=== PATIENT | male | born 1985 | race Caucasian/White ===

== ENCOUNTER → 2021-07-13 | Outpatient (CLI) | payer OTHER ==
[~2021-07-13] MED LIST: DULO60CA7 PO; MULT-496 PO; NAPR-514 PO; OXYC-325 PO
== END ==
LOC: LAB 10:27
PROVIDERS: ATTEND Orthopaedic Surgery Sports Medicine
DX: Z01.812 Encounter for preprocedural laboratory examination (principal); Z20.822 Contact with and (suspected) exposure to COVID-19
CPT/HCPCS: U0003

== ENCOUNTER 2021-07-17 07:45 | Day surgery (SDC) | payer OTHER ==
[~2021-07-17] VITALS: Ht 172.7 cm; Wt 95.4 kg
[~2021-07-17 07:45] MED LIST changes: +BUPIVACAINE MPF 0.5% 30 ML VIAL. ONE; +EPINEPHrine VIAL 30 MG/30 ML VIAL ONE; +HYDROmorphone 2 MG/ML INJ. IVP PRN; +IV RINGERS,LACTATED 1000ML 1,000 ML IV SCH; +MORPHINE SULFATE 2 MG/ML INJ. IVP PRN; -OXYC-325 PO; +PROCHLORPERAZINE 10 MG/2 ML VIAL. IVP PRN; +fentaNYL PF VIAL 100 MCG/2 ML VIAL IVP PRN
[2021-07-17 08:05] VITALS: BP 119/66
[2021-07-17] MEDS ORDERED: OXYC-325 PO (08:06)
--- NOTE | 2021-07-17 08:07 | DISCH ---
DISCHARGE INSTRUCTIONS Condition on Discharge Condition on Discharge: Stable Activity After Discharge Activity Instructions for Disc: Other ROM activity, Other, see below Other activity instructions: remain in brace Bathing Instructions: Shower-keep dressing dry Weight Bearing Status after Di: Non weight bearing Diet after Discharge Diet after Discharge: Regular Wound Incision Care Wound/Incision Care: Ice to area for comfort, Keep wound/cast CDI, Change dressing Other wound/incision instructi: change dressing in 2 days Contacting the DRMichelle after DC Call your doctor for: Concerns you may have Follow-Up Follow up with: Vincent in 2wks LY SIDDIQI II, MD Jul 17, 2021 08:07
[2021-07-17] MEDS ORDERED: FAMOTIDINE 20 MG/2 ML VIAL ONE (08:31)
[2021-07-17] MEDS ORDERED: PROPOFOL 10 MG/ML (20ML) VIAL. IV ONE (08:31)
[2021-07-17] MEDS ORDERED: DEXAMETHASONE SOD PHOS 4 MG/ML VIAL ONE (08:31)
[2021-07-17] MEDS ORDERED: fentaNYL PF VIAL 100 MCG/2 ML VIAL ONE (08:31)
[2021-07-17] MEDS ORDERED: ONDANSETRON PF 4 MG/2 ML VIAL. ONE (08:31)
[2021-07-17] MEDS ORDERED: MIDAZOLAM HCL/PF 2 MG/2 ML VIAL. ONE (08:31)
[2021-07-17] MEDS ORDERED: LIDOCAINE 2% PF 5 ML VIAL. ONE (08:32)
--- NOTE | 2021-07-17 09:11 | PDOC4 ---
Operative Note Operative Note Date of procedure: 07/17/2021 Surgeon: Abdifatah Siddiqi Worm Grower: Tavares Bojorquez Preoperative diagnosis: Right knee lateral meniscus tear Postoperative gnosis: Same Procedure performed: Right knee arthroscopy with partial lateral meniscectomy Anesthesia: General Findings: 1. Patient agreed to changes centrally at his patella, remainder of cartilage was unremarkable 2. No loose bodies 3. Intact cruciate ligaments 4. Medial meniscus was stable without tear 5. Lateral meniscus had a small central radial tear and showed some fraying at the anterior horn Tourniquet time: Less than 30 minutes Complications: None Components inserted: None Reason for procedure: Patient is a pleasant 36-year-old gentleman who had a knee injury and has had pain and intermittent swelling. Clinical and radiographic work-up including MRI were consistent with the preoperative diagnosis and after discussion of the risk benefits and alternatives he elected to proceed with surgery. Description of procedure: Patient was greeted in the preoperative area by myself or the correct extremity was verified and marked. He was taken to the operative suite and his antibiotics were started as she was brought back. Once in the op erating room he was transferred on spine to the operating room table and secured to bed with all pressure points padded. We had a padded bump secured laterally at his hip and a padded foot rest to maintain his knee at 90 degrees. He had successful induction of a general anesthetic. Nonsterile tourniquet was applied and taped in place to his right upper thigh. Examination under anesthesia demonstrated his knee was stable to varus and valgus at 0 and 30, negative pivot, negative Edward. We then proceeded to prep and drape right lower extremity our usual sterile fashion and conducted our standard preoperative timeout. I palpated marked surface anatomy 5 planned incisions and then exsanguinated the extremity with an Esmarch and insufflated tourniquet to 250 mmHg. I incised skin and for an anterolateral portal and introduced the blunt arthroscopic trocar into the suprapatellar pouch followed by the camera. I then proceeded to begin my diagnostic arthroscopy and upon entering the medial compartment used a spinal needle to localize an anteromedial portal and incised skin accordance with this and then she introduced my probe. I continued on with my diagnostic arthroscopy with the above-noted findings. I took down some of the ligamentum and fat pad for visualization. I inspected his lateral meniscus and it was stable to probing showed no signs of injury at the root or peripherally at the body. Anteriorly he had evidence of some longitudinal fraying that had scarred in, I was not able to violate it with the probe. It looks like part of the meniscus, about 15 mm had superficially denuded and become scarred down over the anterior horn. I trimmed this out with a shaver and biter. I took care to preserve the intrameniscal ligament. I then used a shaver to remove the small radial tear centrally at the body on the inner aspect. After this, I ensured that all loose debris had been removed with repeated aspiration maneuvers and vigorous palpation posteriorly at the popliteal fossa. We then removed the arthroscopic instrumentation and closed the portals with 3-0 nylon in a simple fashion. A soft bulky dressing was applied followed by an Kyrie wrap. Patient be discharged home today, weightbearing as tolerated. I will see him back in 2 weeks, sooner should a problem arise ABDIFATAH SIDDIQI II, MD Jul 17, 2021 09:11
[2021-07-17] MEDS ORDERED: oxyCODONE/APAP 5/325 1 TAB TABLET PO ONE (10:15)
[2021-07-17 10:25] VITALS: BP 131/79
== END 2021-07-17 10:50 | disposition home or self-care (01) ==
LOC: SURG 07:45
PROVIDERS: ATTEND Orthopaedic Surgery Sports Medicine
DX: S83.281A Other tear of lateral meniscus, current injury, right knee, initial encounter (principal); F41.9 Anxiety disorder, unspecified; F32.9 Major depressive disorder, single episode, unspecified; Z87.891 Personal history of nicotine dependence; Z79.899 Other long term (current) drug therapy; Z98.890 Other specified postprocedural states; Z72.89 Other problems related to lifestyle; Z88.0 Allergy status to penicillin; X58.XXXA Exposure to other specified factors, initial encounter; Y93.89 Activity, other specified; Y92.89 Other specified places as the place of occurrence of the external cause; Y99.8 Other external cause status
CPT/HCPCS: 29881; 36415; 82306; A4930; J0171; J0690; J1100; J2250; J2405; J2704; J3010; J3490; A4452